=== PATIENT | male | born 1965 | race Caucasian/White ===

== ENCOUNTER 2019-03-28 11:06 | Inpatient (IN) | payer MEDICARE ==
[~2019-03-28] VITALS: Ht 170.2 cm; Wt 95.4 kg
[2019-03-28 11:54] LABS: HEMATOCRIT 21.7 % (42-54); LYMPHOCYTES % (AUTO) 31.2 % (21.0-51.0); MEAN CORPUSCULAR HEMOGLOBIN 25.2 pg (27.0-33.0); MEAN CORPUSCULAR HGB CONC 32.7 g/dL (32.0-36.0); MEAN CORPUSCULAR VOLUME 76.8 fL (79-99); MONOCYTES % (AUTO) 7.7 % (3.0-13.0); NEUTROPHILS % (AUTO) 60.1 % (40.0-77.0); NUCLEATED RED BLOOD CELLS 0.1 % (0.0-0.19); PLATELET COUNT (AUTO) 117 K/uL (130-400); RED BLOOD CELL COUNT(AUTO) 2.83 MIL/uL (4.50-6.20); RED CELL DISTRIBUTION WIDTH 16.8 % (11.0-15.5); WHITE BLOOD COUNT (AUTO) 2.8 K/uL (4.8-10.8)
[2019-03-28 12:09] LABS: BILIRUBIN,TOTAL 0.4 mg/dL (0.2-1.0); TOTAL PROTEIN, SERUM 8.2 g/dL (6.0-8.3)
[2019-03-28 12:11] LABS: PARTIAL THROMBOPLASTIN TIME 54.6 SEC (26.3-35.5)
[2019-03-28 12:24] LABS: CREATININE 8.2 mg/dL (0.5-1.5); POTASSIUM 6.7 mmol/L (3.5-5.1)
[2019-03-28 12:25] LABS: B-TYPE NATRIURETIC PEPTIDE 1350 pg/mL (0-100)
[2019-03-28] MEDS ORDERED: FUROSEMIDE 10 MG/ML 2ML VIAL ONE (12:35)
[2019-03-28] MEDS ORDERED: INSULIN HUMULIN R 100 UNIT/ML 3ML ONE ×2 (12:36→18:02)
[2019-03-28] MEDS ORDERED: DEXTROSE 50%-WATER 50 ML DISP.SYRIN IV ONE ×2 (12:36→18:02)
[2019-03-28] MEDS ORDERED: ALBUTEROL SULFATE 0.083% 2.5 MG/3 ML INH IH ONE ×2 (12:38→18:03)
[2019-03-28 12:39] LABS: APPEARANCE,URINE Cloudy (CLEAR); BILIRUBIN,URINE Negative (NEGATIVE); COLOR,URINE Orange (YELLOW); GLUCOSE, URINE (UA) Negative (NEGATIVE); KETONES,URINE Negative (NEGATIVE); LEUKOCYTE ESTERASE ,URINE Trace (NEGATIVE); NITRATE,URINE Negative (NEGATIVE); OCCULT BLOOD,URINE Large (NEGATIVE); PROTEIN,URINE POS 2+ mg/dL (NEGATIVE)
[2019-03-28 12:49] LABS: AMPHET/METH SCREEN,URINE NEGATIVE (NEGATIVE); BACTERIA,URINE Few /HPF (None Seen); BARBITURATE SCREEN, URINE NEGATIVE (NEGATIVE); BENZODIAZEPINES SCREEN,URINE POSITIVE (NEGATIVE); CANNABINOID SCREEN,URINE NEGATIVE (NEGATIVE); COCAINE SCREEN,URINE NEGATIVE (NEGATIVE); OPIATE SCREEN,URINE NEGATIVE (NEGATIVE); PHENCYCLIDINE SCREEN,URINE NEGATIVE (NEGATIVE); RBC,URINE TNTC /HPF (0-1); SQUAMOUS EPITHELIAL CELL,UR 0-2 /HPF (0-2); WBC,URINE 0-1 /HPF (0-1)
[2019-03-28 12:53] LABS: INR 3.9 (0.85-1.15); PROTHROMBIN TIME 38.9 SEC (9.6-11.6)
[2019-03-28 13:19] LABS: LYMPHOCYTES % (MANUAL) 28 % (22-44); MAN.DIFF COMMENT-IMPRESSION MANUAL DIFFERENTIAL; MONOCYTES % (MANUAL) 3 % (2-9); SEGMENTED NEUTROPHILS % 69 % (40-70)
[2019-03-28 13:20] LABS: PLATELET MORPHOLOGY COMMENT SLIGHTLY DECREASED
[2019-03-28] MEDS ORDERED: ACETAMINOPHEN 325 MG TAB PO PRN (13:30)
[2019-03-28] MEDS ORDERED: SODIUM POLYSTYRENE SULFONATE 15 GM/60 ML ML RC SCH (13:30)
[2019-03-28] MEDS ORDERED: FERROUS SULFATE 325 MG TABLET.DR PO SCH (13:30)
[2019-03-28 14:12] LABS: % IRON SATURATION 8.3 % (30-44)
[2019-03-28] MEDS ORDERED: WARF5TAB76 PO (14:36)
[2019-03-28] MEDS ORDERED: NITR0.3T11 SL (14:36)
[2019-03-28] MEDS ORDERED: DIAZ5TAB4 PO (14:36)
[2019-03-28] MEDS ORDERED: FERR159T2 PO (14:36)
[2019-03-28] MEDS ORDERED: GABA300S PO (14:36)
[2019-03-28] MEDS ORDERED: PATI8.4P PO (14:36)
[2019-03-28] MEDS ORDERED: BUSP10TA3 PO (14:36)
[2019-03-28] MEDS ORDERED: CARV25TA PO (14:36)
[2019-03-28] MEDS ORDERED: SODIUM POLYSTYRENE SULFONATE 15 GM/60 ML ML PO SCH (14:45)
[2019-03-28] MEDS ORDERED: SODIUM POLYSTYRENE SULFONATE 15 GM/60 ML ML ONE ×2 (14:46→19:20)
[2019-03-28] MEDS ORDERED: SODIUM CHLORIDE 0.9% 500ML 500 ML IV ONE (15:01)
[2019-03-28] MEDS ORDERED: HYDRALAZINE HCL 20 MG/ML VIAL IV PRN (16:15)
[2019-03-28] MEDS ORDERED: CALCIUM CHLORIDE 100 MG/ML 10 ML SYG IVP SCH (16:15)
[2019-03-28] MEDS ORDERED: ONDANSETRON HCL 4 MG/2 ML VIAL IVP PRN (16:15)
[2019-03-28] MEDS ORDERED: FUROSEMIDE 10 MG/ML 4ML VIAL ONE (18:01)
[2019-03-28] MEDS ORDERED: CALCIUM CHLORIDE 1,000 MG in SODIUM CHLORIDE 0.9% 100 ML IVP SCH (18:30)
[2019-03-28 23:00] VITALS: BP 176/97
[2019-03-28] MEDS: FAMOTIDINE 20MG TAB 20 MG TAB PO SCH (23:44)
[2019-03-28] MEDS: SODIUM BICARBONATE 650 MG TAB PO SCH (23:44)
--- NOTE | 2019-03-28 23:45 | NUR ---
ADMISSION NOTE PATIENT ARRIVED FROM ED VIA STRETCHER. PATIENT ALERT & ORIENTED X3, ON ROOM AIR. PATIENT DENIES PAIN AT THIS TIME. PER REPORT, POTASSIUM IS AT 6. PATIENT HAS BEEN ON KAYAXALATE. WILL AWAIT ORDERED LABS FOR POTASSIUM LEVEL. PATIENT UP AD ROMULO. ON TELEMETRY PATIENT IS SINUS RHYTHM AT 83. CALL LIGHT WITHIN REACH. INSTRUCTED TO CALL FOR ASSISTANCE. VERBALIZED UNDERSTANDING. FAMILY AT BEDSIDE.
[2019-03-29 00:42] LABS: CREATININE 8.6 mg/dL (0.5-1.5); POTASSIUM 6.3 mmol/L (3.5-5.1)
[2019-03-29 04:00] VITALS: BP 144/90
[2019-03-29 04:18] LABS: BASOPHILS % (AUTO) 1.1 % (0.0-5.0); EOSINOPHILS % (AUTO) 0.1 % (0.0-8.0); HEMATOCRIT 22.5 % (42-54); LYMPHOCYTES % (AUTO) 37.3 % (21.0-51.0); MEAN CORPUSCULAR HEMOGLOBIN 25.4 pg (27.0-33.0); MEAN CORPUSCULAR HGB CONC 32.7 g/dL (32.0-36.0); MEAN CORPUSCULAR VOLUME 77.8 fL (79-99); NEUTROPHILS % (AUTO) 51.5 % (40.0-77.0); PLATELET COUNT (AUTO) 121 K/uL (130-400); RED BLOOD CELL COUNT(AUTO) 2.89 MIL/uL (4.50-6.20); RED CELL DISTRIBUTION WIDTH 17.6 % (11.0-15.5); WHITE BLOOD COUNT (AUTO) 2.7 K/uL (4.8-10.8)
[2019-03-29 04:38] LABS: ALBUMIN 2.8 g/dL (3.5-5.0); BILIRUBIN,DIRECT 0.1 mg/dL (0.0-0.3); BILIRUBIN,TOTAL 0.4 mg/dL (0.2-1.0); MAGNESIUM 2.5 mg/dL (1.80-2.40); PHOSPHORUS 6.7 mg/dL (2.5-4.9); TOTAL PROTEIN, SERUM 7.7 g/dL (6.0-8.3); URIC ACID 10.2 mg/dL (2.6-7.2)
[2019-03-29 05:11] LABS: CREATININE 8.9 mg/dL (0.5-1.5); POTASSIUM 6.3 mmol/L (3.5-5.1)
--- NOTE | 2019-03-29 06:15 | NUR ---
PAGED FORENSIC COMPUTER EXAMINER AT 0546 DR. VINCENT EVANS WAS PAGED FOR HOSPITALIST GROUP. DR CALLED BACK AT 0615, INFORMED OF POTASSIUM AT 6.3 AND CREATININE LEVEL AT 8.9. INFORMED PATIENT PREVIOUSLY RECEIVED TWO ROUNDS OF HYPERKALEMIA COCKTAIL, PLUS 60G OF KAYEXALATE. INFORMED THAT BMP LEVELS ARE TO BE DRAWN EVERY [address] STATED TO AWAIT FOR 8AM RESULTS ON NEXT BMP. NO NEW ORDERS GIVEN.
[2019-03-29 07:37] VITALS: BP 156/91
[2019-03-29] MEDS ORDERED: GABA-531 PO (08:18)
--- NOTE | 2019-03-29 08:18 | NUR ---
FATEMEH BRYANT, IN ROOM WITH PT. FOR PULMONARY CONSULT.
[2019-03-29] MEDS: SODIUM BICARBONATE 650 MG TAB PO SCH ×2 (08:23→20:44)
[2019-03-29] MEDS: FOLIC ACID/VITAMIN B COMP W-C 1 MG CAP/TAB PO SCH (08:23)
--- NOTE | 2019-03-29 08:23 | NUR ---
DR. DUGAN IN ROOM SPEAKING WITH PT. RE:LATEST LABS AND ABD US RESULTS. PLAN OF CARE EXPLAINED BY DR. DUGAN AND QUESTIONS ANSWERED; PT. AND SPOUSE AT BEDSIDE VERBALIZED MUTUAL UNDERSTANDING.
[2019-03-29] MEDS: FERROUS SULFATE 325 MG TABLET.DR PO SCH (08:24)
[2019-03-29 08:37] LABS: CREATININE 9.3 mg/dL (0.5-1.5)
[2019-03-29] MEDS: PATIROMER CALCIUM SORBITEX 8.4 GM PO SCH (09:00)
[2019-03-29] MEDS: CARVEDILOL 25 MG TABLET PO SCH ×2 (10:00→20:44)
[2019-03-29 12:05] VITALS: BP 147/85
--- NOTE | 2019-03-29 14:38 | NUR ---
DR. LEE IN ROOM SPEAKING WITH PT. RE:PLAN OF CARE. QUESTIONS ANSWERED BY DR. LEE.
--- NOTE | 2019-03-29 14:43 | NUR ---
DC PLAN VISITED WITH PATIENT LIVES WITH SPOUSE. INDEPENDENT ABLE TO PERFORM ADL'S. PATIENT HAS NO SERVICES OR DME'S. FEELS SAFE TO RETURN HOME. Addendum: 03/29/19 at 1445 by ENRIKE MAURICIO RN CM Amended: Links added.
--- NOTE | 2019-03-29 15:05 | NUR ---
RD NOTIFICATION Dx: CKD, SEVERE ANEMIA. Hx: DAILY DRINKER. DIET: RENAL DIALYSIS. PO INTAKE 100% AND HAS GOOD APPETITE. LBM: 03/29. PT NEVER BEEN ON DIALYSIS IN THE PAST. SKIN INTACT, NO EDEMA NOTED. RD PROVIDED MEDICAL NUTRITION THERAPY. EDUCATION MATERIALS PROVIDED. PT ASKED MANY QUESTIONS, RD ANSWERED AND PT VERBALIZED UNDERSTANDING. RD ENCOURAGED PT TO LIMIT POTASSIUM, PHOSPHOROUS, PROTEIN AND FLUID INTAKE DUE TO SEVERE ELEVATED RENAL FAILURE LABS. PT STATED HE LAST WEIGHED 240# IN THE PAST 6 MONTHS, THAT IS A 15.4% WEIGHT LOSS CHANGE IN THE PAST 6 MONTHS; CLASSIFIED MALNUTRITION. RECOMMENDATIONS AND INTERVENTIONS: D/C RENAL DIALYSIS, CHANGE DIET ORDER TO RENAL NON-DIALYSIS, LOW FAT, 1200ML/D FLUID RESTRICTION RECOMMEND THIAMINE SUPPLEMENTATION DUE TO HX OF DAILY DRINKER RD PROVIDED RENAL NON-DIALYSIS MEDICAL NUTRITION THERAPY, MATERIALS PROVIDED WILL CONTINUE TO MONITOR LABS AND FOLLOW UP, THANK YOU Addendum: 03/29/19 at [address] Amended: Links added.
--- NOTE | 2019-03-29 15:14 | NUR ---
DIET EDUCATION RD PROVIDED MEDICAL NUTRITION THERAPY. EDUCATION MATERIALS PROVIDED. PT ASKED MANY QUESTIONS, RD ANSWERED AND PT VERBALIZED UNDERSTANDING. RD ENCOURAGED PT TO LIMIT POTASSIUM, PHOSPHOROUS, PROTEIN AND FLUID INTAKE DUE TO SEVERE ELEVATED RENAL FAILURE LABS. PT STATED HE LAST WEIGHED 240# IN THE PAST 6 MONTHS, THAT IS 15.4% WEIGHT CHANGE IN THE PAST 6 MONTHS; CLASSIFIED MALNUTRITION. Addendum: 03/29/19 at [address] Amended: Links added.
[2019-03-29 15:25] VITALS: BP 145/85
[2019-03-29 19:00] VITALS: BP 160/94
--- NOTE | 2019-03-29 20:00 | NUR ---
Patient stated confusion as to proper treatment for current problem Patient voiced that he was confused with what the doctors were talking about. He stated that each doctor was talking about different treatments for patient. Day Spa Manager encouraged patient to write concerns down and to ask Dr. Hebert in the a.m. to clarify weather or not dialysis is the proper treatment or not.
[2019-03-29] MEDS: FAMOTIDINE 20MG TAB 20 MG TAB PO SCH (20:44)
[2019-03-29 23:00] VITALS: BP 150/64
[2019-03-30 04:00] VITALS: BP 138/80
[2019-03-30 04:39] LABS: EOSINOPHILS % (AUTO) 0.1 % (0.0-8.0); HEMATOCRIT 22.5 % (42-54); LYMPHOCYTES % (AUTO) 45.4 % (21.0-51.0); MEAN CORPUSCULAR HEMOGLOBIN 25.4 pg (27.0-33.0); MEAN CORPUSCULAR HGB CONC 32.7 g/dL (32.0-36.0); MEAN CORPUSCULAR VOLUME 77.8 fL (79-99); MONOCYTES % (AUTO) 10.3 % (3.0-13.0); NEUTROPHILS % (AUTO) 43.2 % (40.0-77.0); NUCLEATED RED BLOOD CELLS 0.1 % (0.0-0.19); PLATELET COUNT (AUTO) 105 K/uL (130-400); RED CELL DISTRIBUTION WIDTH 17.5 % (11.0-15.5); WHITE BLOOD COUNT (AUTO) 2.7 K/uL (4.8-10.8)
[2019-03-30 04:59] LABS: MAGNESIUM 1.5 mg/dL (1.80-2.40); PHOSPHORUS 6.4 mg/dL (2.5-4.9); POTASSIUM 5.7 mmol/L (3.5-5.1)
[2019-03-30 05:13] LABS: CREATININE 9.6 mg/dL (0.5-1.5)
[2019-03-30 05:19] LABS: BAND NEUTROPHILS % (MANUAL) 4 % (0-2); LYMPHOCYTES % (MANUAL) 36 % (22-44); MONOCYTES % (MANUAL) 4 % (2-9); SEGMENTED NEUTROPHILS % 56 % (40-70)
[2019-03-30 05:20] LABS: MAN.DIFF COMMENT-IMPRESSION MANUAL DIFFERENTIAL; PLATELET MORPHOLOGY COMMENT SLIGHTLY DECREASED
[2019-03-30 07:42] VITALS: BP 154/92
[2019-03-30] MEDS: PATIROMER CALCIUM SORBITEX 8.4 GM PO SCH (09:00)
[2019-03-30 10:12] LABS: HEPATITIS A ANTIBODY IGM Negative (Negative); HEPATITIS B CORE IGM Negative (Negative); HEPATITIS Bs ANTIGEN SCREEN P Negative (Negative)
[2019-03-30] MEDS: FOLIC ACID/VITAMIN B COMP W-C 1 MG CAP/TAB PO SCH (10:22)
[2019-03-30] MEDS: FERROUS SULFATE 325 MG TABLET.DR PO SCH (10:22)
[2019-03-30] MEDS: CARVEDILOL 25 MG TABLET PO SCH ×2 (10:23→21:29)
[2019-03-30] MEDS: SODIUM BICARBONATE 650 MG TAB PO SCH ×2 (10:24→21:28)
[2019-03-30 11:29] VITALS: BP 134/85
[2019-03-30 15:25] VITALS: BP 146/87
--- NOTE | 2019-03-30 18:00 | NUR ---
BENCH MECHANIC Paged Dr. Vela. Pending for him to call back and consult patient for possible scleroderma diagnosis based on laboratory results.
[2019-03-30 19:42] VITALS: BP 147/88
--- NOTE | 2019-03-30 20:21 | NUR ---
ASSESSMENT PATIENT IS RESTING IN BED. ALERT AND ORIENTED X4. PATIENTS IS AT BEDSIDE. NO COMPLAINTS OF PAIN AT THIS TIME. NO SHORTNESS OF BREATH. NO SIGNS OF DISTRESS. PATIENTS CALL LIGHT, BEDSIDE TABLE, AND PERSONAL BELONGING WITHIN REACH. PATIENT REINFORCED TO CALL FOR ANY NEEDS. PATIENT HAD MULTIPLE QUESTIONS REGARDING CONDITION PENDING CONSULT WITH DR. BERGER. NO OTHER NEEDS AT THIS TIME.
[2019-03-30] MEDS: FAMOTIDINE 20MG TAB 20 MG TAB PO SCH (21:28)
[2019-03-30 23:24] VITALS: BP 152/88
[2019-03-31] VITALS (12 sets, daily range): BP systolic 140–160; BP diastolic 77–97
--- NOTE | 2019-03-31 | NUR ---
ASSESSMENT PATIENT IS RESTING IN BED. NO COMPLAINTS OF PAIN AT THIS TIME. NO SIGNS OF DISTRESS. NO SHORTNESS OF BREATH. CALL LIGHT WITHIN REACH. NO QUESTIONS, CONCERNS, OR NEEDS AT THIS TIME.
[2019-03-31 04:25] LABS: BASOPHILS % (AUTO) 1.2 % (0.0-5.0); EOSINOPHILS % (AUTO) 0.1 % (0.0-8.0); HEMATOCRIT 21.6 % (42-54); LYMPHOCYTES % (AUTO) 45.3 % (21.0-51.0); MEAN CORPUSCULAR HEMOGLOBIN 26.3 pg (27.0-33.0); MEAN CORPUSCULAR HGB CONC 33.5 g/dL (32.0-36.0); MEAN CORPUSCULAR VOLUME 78.4 fL (79-99); MONOCYTES % (AUTO) 11.1 % (3.0-13.0); NEUTROPHILS % (AUTO) 42.3 % (40.0-77.0); NUCLEATED RED BLOOD CELLS 0.2 % (0.0-0.19); PLATELET COUNT (AUTO) 103 K/uL (130-400); RED BLOOD CELL COUNT(AUTO) 2.76 MIL/uL (4.50-6.20); RED CELL DISTRIBUTION WIDTH 17.7 % (11.0-15.5); WHITE BLOOD COUNT (AUTO) 2.6 K/uL (4.8-10.8)
[2019-03-31 04:40] LABS: POTASSIUM 5.8 mmol/L (3.5-5.1)
[2019-03-31 04:54] LABS: CREATININE 10.6 mg/dL (0.5-1.5)
--- NOTE | 2019-03-31 06:05 | NUR ---
ASSESSMENT PATIENT IS RESTING IN BED. IS AT BEDSIDE. NO COMPLAINTS OF PAIN. NO SIGNS OF DISTRESS. NO SHORTNESS OF BREATH. NO QUESTIONS, CONCERNS, OR NEEDS AT THIS TIME. PATIENTS CALL LIGHT IS WITHIN REACH. REINFORCED TO CALL FOR ANY NEEDS.
[2019-03-31] MEDS: FERROUS SULFATE 325 MG TABLET.DR PO SCH (06:44)
[2019-03-31] MEDS: PATIROMER CALCIUM SORBITEX 8.4 GM PO SCH (09:00)
[2019-03-31 09:36] LABS: INR 1.93 (0.85-1.15); PARTIAL THROMBOPLASTIN TIME 44.9 SEC (26.3-35.5); PROTHROMBIN TIME 19.8 SEC (9.6-11.6)
[2019-03-31] MEDS: SODIUM BICARBONATE 650 MG TAB PO SCH ×2 (09:39→20:29)
[2019-03-31] MEDS: CARVEDILOL 25 MG TABLET PO SCH ×2 (09:39→20:29)
[2019-03-31] MEDS: FOLIC ACID/VITAMIN B COMP W-C 1 MG CAP/TAB PO SCH (09:39)
[2019-03-31] MEDS ORDERED: LIDOCAINE HCL 1% MDV 50ML VIAL ONE (11:25)
[2019-03-31] MEDS ORDERED: CEFAZOLIN SODIUM 1 GM VIAL ONE (11:29)
[2019-03-31 13:14] LABS: ALBUMIN 2.8 g/dL (3.5-5.0)
[2019-03-31 13:16] LABS: HEMOGLOBIN A1C 5.4 % (4.0-6.0)
[2019-03-31 14:03] LABS: % IRON SATURATION 27.3 % (30-44)
[2019-03-31] MEDS ORDERED: 0.9% SODIUM CHLORIDE 1000 ML IV BAG IV PRN (16:30)
[2019-03-31] MEDS ORDERED: NITROGLYCERIN 0.4 MG SL TAB SL PRN (16:30)
[2019-03-31] MEDS ORDERED: SODIUM CHLORIDE 0.9% 1000ML 1,000 ML IV PRN (16:30)
[2019-03-31] MEDS: HEPARIN SODIUM 5000UNIT/ML 1ML VIAL IJ PRN (16:44)
--- NOTE | 2019-03-31 18:51 | NUR ---
DIALYSIS FINISHED AND NO FLUID REMOVED ONLY A 2 HOUR TREATMENT AND DIALYSIS NURSE WERE INSTRUCTED BY DR PARKS TO JUST CLEANSE HIS BLOOD. ANOTHER TREATMENT ORDERED FOR TOMORROW AND WILL FOLLOW UP AGAIN WITH PATIENT. Addendum: 03/31/19 at 1852 by JANIE CAST RN RN Amended: Links added.
--- NOTE | 2019-03-31 19:55 | NUR ---
ASSESSMENT PATIENT IS RESTING IN BED. ALERT AND ORIENTED X4. NO COMPLAINTS OF PAIN. NO SHORTNESS OF BREATH. NO SIGNS OF DISTRESS. S/P DIALYSIS CATHETER PLACEMENT TODAY, PRESSURE DRESSING IN PLACE THAT IS CLEAN, DRY, AND INTACT. CALL LIGHT AND BEDSIDE TABLE WITHIN REACH. IS AT BEDSIDE. REINFORCED PATIENT TO CALL FOR ANY NEEDS. NO QUESTIONS, CONCERNS, OR NEEDS AT THIS TIME.
[2019-03-31] MEDS: FAMOTIDINE 20MG TAB 20 MG TAB PO SCH (20:29)
[2019-04-01] VITALS: BP 144/90
[2019-04-01 04:01] VITALS: BP 149/78
[2019-04-01] MEDS: FERROUS SULFATE 325 MG TABLET.DR PO SCH (06:50)
[2019-04-01 07:14] LABS: HEPATITIS Bs ANTIGEN SCREEN P Negative (Negative)
[2019-04-01 07:21] VITALS: BP 152/90
[2019-04-01] MEDS ORDERED: VENTOLIN HFA IH PRN (09:00)
[2019-04-01] MEDS: PATIROMER CALCIUM SORBITEX 8.4 GM PO SCH (09:00)
[2019-04-01] MEDS: FOLIC ACID/VITAMIN B COMP W-C 1 MG CAP/TAB PO SCH (09:15)
[2019-04-01] MEDS: SODIUM BICARBONATE 650 MG TAB PO SCH ×2 (09:15→20:47)
[2019-04-01] MEDS: CARVEDILOL 25 MG TABLET PO SCH ×2 (09:15→20:50)
[2019-04-01] MEDS ORDERED: ALBUTEROL SULFATE 0.083% 2.5 MG/3 ML INH IH ONE (09:33)
[2019-04-01 11:27] VITALS: BP 159/91
[2019-04-01 15:22] VITALS: BP 172/92
[2019-04-01] MEDS: HEPARIN SODIUM 5000UNIT/ML 1ML VIAL IJ PRN (15:29)
[2019-04-01] MEDS ORDERED: GUAIFENESIN-DM 200/20 MG 10 ML PO PRN (17:30)
[2019-04-01] MEDS ORDERED: WARFARIN SODIUM 5 MG TAB PO SCH (18:00)
[2019-04-01] MEDS: ALBUTEROL SULFATE 0.083% 2.5 MG/3 ML INH IH PRN (18:39)
[2019-04-01] MEDS: FAMOTIDINE 20MG TAB 20 MG TAB PO SCH (20:48)
[2019-04-02 00:10] VITALS: BP 157/99
[2019-04-02 03:43] VITALS: BP 115/64
[2019-04-02 04:20] LABS: INR 1.33 (0.85-1.15); PARTIAL THROMBOPLASTIN TIME 36.2 SEC (26.3-35.5); PROTHROMBIN TIME 13.8 SEC (9.6-11.6)
[2019-04-02] MEDS: FERROUS SULFATE 325 MG TABLET.DR PO SCH (06:33)
[2019-04-02] MEDS: ALBUTEROL SULFATE 0.083% 2.5 MG/3 ML INH IH PRN ×2 (06:50→19:03)
[2019-04-02 08:01] VITALS: BP 149/95
[2019-04-02] MEDS: PATIROMER CALCIUM SORBITEX 8.4 GM PO SCH (09:00)
[2019-04-02] MEDS: SODIUM BICARBONATE 650 MG TAB PO SCH ×2 (09:16→19:57)
[2019-04-02] MEDS: FOLIC ACID/VITAMIN B COMP W-C 1 MG CAP/TAB PO SCH (09:16)
[2019-04-02] MEDS: CARVEDILOL 25 MG TABLET PO SCH ×2 (09:17→19:57)
[2019-04-02 10:36] LABS: BASOPHILS % (AUTO) 0.3 % (0.0-5.0); EOSINOPHILS % (AUTO) 0.1 % (0.0-8.0); LYMPHOCYTES % (AUTO) 41.2 % (21.0-51.0); MEAN CORPUSCULAR HEMOGLOBIN 25.7 pg (27.0-33.0); MEAN CORPUSCULAR HGB CONC 33.4 g/dL (32.0-36.0); MEAN CORPUSCULAR VOLUME 76.8 fL (79-99); MONOCYTES % (AUTO) 12.1 % (3.0-13.0); NEUTROPHILS % (AUTO) 46.3 % (40.0-77.0); NUCLEATED RED BLOOD CELLS 0.3 % (0.0-0.19); PLATELET COUNT (AUTO) 90 K/uL (130-400); RED BLOOD CELL COUNT(AUTO) 2.54 MIL/uL (4.50-6.20); RED CELL DISTRIBUTION WIDTH 17.7 % (11.0-15.5)
[2019-04-02 10:43] LABS: HEMATOCRIT 19.5 % (42-54)
[2019-04-02 11:50] VITALS: BP 153/92
[2019-04-02] MEDS: HEPARIN 25000 UNITS/250 ML D5W 250 ML IV PRN (14:12)
[2019-04-02 15:39] VITALS: BP 142/93
[2019-04-02] MEDS ORDERED: WARFARIN SODIUM 5 MG TAB PO SCH (16:00)
[2019-04-02] MEDS: DIPHENHYDRAMINE HCL 25 MG CAPSULE PO PRN (17:10)
[2019-04-02] MEDS: FAMOTIDINE 20MG TAB 20 MG TAB PO SCH (19:57)
[2019-04-02 20:01] VITALS: BP 149/90
[2019-04-02 21:25] LABS: INR 1.29 (0.85-1.15); PARTIAL THROMBOPLASTIN TIME 53.4 SEC (26.3-35.5); PROTHROMBIN TIME 13.4 SEC (9.6-11.6)
[2019-04-03 00:51] VITALS: BP 143/85
[2019-04-03] MEDS: DIPHENHYDRAMINE HCL 25 MG CAPSULE PO PRN ×2 (01:30→13:28)
--- NOTE | 2019-04-03 03:43 | NUR ---
PATIENT RESTING IN BED. C/O COUGH WHEN LYING BACK OR TALKING. PATIENT DOES BECOME SOB WHEN SPEAKING. RED STREAKED SPUTUM WITH COUGH. PATIENT DEVELOPED REDNESS AND RASH TO BACK OF NECK AND SHOULDERS DURING BLOOD TRANSFUSION BENADRYL WAS GIVEN BY DAY SHIFT. PATIENT STATES SYMPTOMS IMPROVED. HEPARIN DRIP CURRENTLY RUNNING. WILL MAKE ADJUSTMENTS ACCORDING TO PROTOCOL. WILL MONITOR FOR S/S OF BLEEDING.
[2019-04-03 04:23] VITALS: BP 139/94
[2019-04-03] MEDS: HEPARIN 25000 UNITS/250 ML D5W 250 ML IV PRN (05:43)
[2019-04-03] MEDS: ALBUTEROL SULFATE 0.083% 2.5 MG/3 ML INH IH PRN ×2 (06:20→18:03)
[2019-04-03 07:10] VITALS: BP 151/91
[2019-04-03] MEDS: SODIUM BICARBONATE 650 MG TAB PO SCH ×2 (08:25→22:08)
[2019-04-03] MEDS: FOLIC ACID/VITAMIN B COMP W-C 1 MG CAP/TAB PO SCH (08:25)
[2019-04-03] MEDS: FERROUS SULFATE 325 MG TABLET.DR PO SCH (08:25)
[2019-04-03] MEDS: CARVEDILOL 25 MG TABLET PO SCH ×2 (08:29→22:08)
--- NOTE | 2019-04-03 08:30 | NUR ---
PT STATES THAT HE LONGER TAKES VELTASSA BECAUSE HE ONLY HAD SAMPLES AND HE IS OUT. DOCTOR HAD TOLD PT THAT SINCE HE WAS ON DIALYSIS HE DID NOT NEED TO TAKE VELTASSA.
[2019-04-03] MEDS: PATIROMER CALCIUM SORBITEX 8.4 GM PO SCH (08:31)
[2019-04-03] MEDS ORDERED: NITROGLYCERIN 0.4 MG SL TAB SL PRN (10:45)
[2019-04-03] MEDS ORDERED: 0.9% SODIUM CHLORIDE 1000 ML IV BAG IV PRN (10:45)
[2019-04-03] MEDS ORDERED: HEPARIN SODIUM 5000UNIT/ML 1ML VIAL IJ PRN ×2 (10:45)
[2019-04-03] MEDS ORDERED: LIDOCAINE HCL-MPF 1% 2ML VIAL IJ PRN (10:45)
[2019-04-03] MEDS ORDERED: SODIUM CHLORIDE 0.9% 1000ML 1,000 ML IV PRN (10:45)
[2019-04-03] MEDS ORDERED: ACETAMINOPHEN 325 MG TAB PO PRN (10:45)
[2019-04-03 11:47] VITALS: BP 153/93
--- NOTE | 2019-04-03 13:00 | NUR ---
PT HAS TOLERATED DIALYSIS AND WILL ADVISE PT THAT DIALYSIS WAS STARTED FOR TOMORROW.
[2019-04-03] MEDS ORDERED: METHYLPREDNISOLONE SOD SUCC 125MG/2ML VIAL IVP SCH (14:30)
--- NOTE | 2019-04-03 15:27 | NUR ---
RD NOTIFICATION/ FOLLOW UP Diet: renal non-dialysis, low fat, 1200ml FR. PO intake 100% and has good appetite as per pt. LBM: 04/03. Skin intact, no edema noted. Will continue to monitor labs (Na 133, K 5.8, BUN 75, CRE 10.6, GFR 5, PHOS 6.4, %SATURATION 27, HGB 6.5, HCT 19.5) Nutrition education materials provided to pt and family Please notify RD if any changes, questions or concerns occur, thank you Addendum: 04/03/19 at [address] Amended: Links added.
[2019-04-03 15:49] VITALS: BP 164/86
[2019-04-03 19:38] VITALS: BP 164/99
[2019-04-03] MEDS: METHYLPREDNISOLONE SOD SUCC 125MG/2ML VIAL IVP SCH (22:08)
[2019-04-03] MEDS: FAMOTIDINE 20MG TAB 20 MG TAB PO SCH (22:08)
[2019-04-04] VITALS (7 sets, daily range): BP systolic 135–167; BP diastolic 77–97
[2019-04-04 04:09] LABS: CREATININE 6.1 mg/dL (0.5-1.5); POTASSIUM 5.8 mmol/L (3.5-5.1)
[2019-04-04 04:22] LABS: BASOPHILS % (AUTO) 0.8 % (0.0-5.0); HEMATOCRIT 24.5 % (42-54); LYMPHOCYTES % (AUTO) 32.5 % (21.0-51.0); MEAN CORPUSCULAR HEMOGLOBIN 26.6 pg (27.0-33.0); MEAN CORPUSCULAR HGB CONC 34.2 g/dL (32.0-36.0); MEAN CORPUSCULAR VOLUME 77.6 fL (79-99); MONOCYTES % (AUTO) 3.6 % (3.0-13.0); NEUTROPHILS % (AUTO) 63.1 % (40.0-77.0); NUCLEATED RED BLOOD CELLS 0.1 % (0.0-0.19); PLATELET COUNT (AUTO) 91 K/uL (130-400); RED BLOOD CELL COUNT(AUTO) 3.16 MIL/uL (4.50-6.20); RED CELL DISTRIBUTION WIDTH 17.6 % (11.0-15.5); WHITE BLOOD COUNT (AUTO) 3.2 K/uL (4.8-10.8)
[2019-04-04] MEDS: ALBUTEROL SULFATE 0.083% 2.5 MG/3 ML INH IH PRN ×2 (06:09→17:59)
[2019-04-04] MEDS: METHYLPREDNISOLONE SOD SUCC 125MG/2ML VIAL IVP SCH ×3 (06:31→21:47)
[2019-04-04] MEDS: FERROUS SULFATE 325 MG TABLET.DR PO SCH (06:31)
[2019-04-04] MEDS: HEPARIN 25000 UNITS/250 ML D5W 250 ML IV PRN ×2 (06:43→20:22)
[2019-04-04] MEDS: PATIROMER CALCIUM SORBITEX 8.4 GM PO SCH (09:00)
[2019-04-04] MEDS: CARVEDILOL 25 MG TABLET PO SCH ×2 (09:02→21:47)
[2019-04-04] MEDS: SODIUM BICARBONATE 650 MG TAB PO SCH ×2 (09:02→21:47)
[2019-04-04] MEDS: FOLIC ACID/VITAMIN B COMP W-C 1 MG CAP/TAB PO SCH (09:02)
[2019-04-04 11:26] LABS: INR 1.29 (0.85-1.15); PARTIAL THROMBOPLASTIN TIME 60.8 SEC (26.3-35.5); PROTHROMBIN TIME 13.2 SEC (9.6-11.6)
--- NOTE | 2019-04-04 11:49 | NUR ---
DR. BERGER HAS CALLED BACK AFTER MULTIPLE ATTEMPTS TO CALL HIS PHONE AND OFFICE. WAS INFORMED ABOUT CONSULTATION.
[2019-04-04] MEDS: FAMOTIDINE 20MG TAB 20 MG TAB PO SCH (21:47)
[2019-04-04] MEDS: HEPARIN SODIUM 5000UNIT/ML 1ML VIAL IJ PRN (21:48)
[2019-04-05 03:53] VITALS: BP 143/81
[2019-04-05 03:56] LABS: CREATININE 4.4 mg/dL (0.5-1.5); POTASSIUM 4.5 mmol/L (3.5-5.1)
[2019-04-05 04:01] LABS: BASOPHILS % (AUTO) 0.2 % (0.0-5.0); HEMATOCRIT 23.2 % (42-54); LYMPHOCYTES % (AUTO) 15.3 % (21.0-51.0); MEAN CORPUSCULAR HEMOGLOBIN 26.9 pg (27.0-33.0); MEAN CORPUSCULAR HGB CONC 34.6 g/dL (32.0-36.0); MEAN CORPUSCULAR VOLUME 77.8 fL (79-99); MONOCYTES % (AUTO) 5.2 % (3.0-13.0); NEUTROPHILS % (AUTO) 79.3 % (40.0-77.0); PLATELET COUNT (AUTO) 89 K/uL (130-400); RED BLOOD CELL COUNT(AUTO) 2.98 MIL/uL (4.50-6.20); RED CELL DISTRIBUTION WIDTH 17.8 % (11.0-15.5); WHITE BLOOD COUNT (AUTO) 3.8 K/uL (4.8-10.8)
[2019-04-05] MEDS: METHYLPREDNISOLONE SOD SUCC 125MG/2ML VIAL IVP SCH ×3 (05:38→21:35)
[2019-04-05] MEDS: FERROUS SULFATE 325 MG TABLET.DR PO SCH (05:38)
[2019-04-05] MEDS: ALBUTEROL SULFATE 0.083% 2.5 MG/3 ML INH IH PRN ×2 (06:45→18:03)
[2019-04-05 06:54] VITALS: BP 158/90
[2019-04-05] MEDS: PATIROMER CALCIUM SORBITEX 8.4 GM PO SCH (09:00)
[2019-04-05] MEDS: FOLIC ACID/VITAMIN B COMP W-C 1 MG CAP/TAB PO SCH (09:13)
[2019-04-05] MEDS: SODIUM BICARBONATE 650 MG TAB PO SCH ×2 (09:13→21:35)
[2019-04-05] MEDS: CARVEDILOL 25 MG TABLET PO SCH ×2 (09:13→21:37)
[2019-04-05 11:07] VITALS: BP 141/89
[2019-04-05 15:15] VITALS: BP 148/82
--- NOTE | 2019-04-05 16:24 | NUR ---
DOC PLAN VISITED WITH PATIENT. PATIENT SIGNED SUMA FOR DIALYSIS. SPOKE TO HIM REGARDING VEHICLE TRANSPORT PATIENT HAS MEDICAID ASKED IF THEY HAD TRIED TO USE THE MEDICAID TRANSPORT SAID THEY HAD HEARD OF IT BUT HAD NOT USED IT. INFO SENT TO [facility]. Addendum: 04/05/19 at 1627 by ENRIKE MAUIRCIO RN CM Amended: Links added.
--- NOTE | 2019-04-05 21:20 | NUR ---
ASSESSMENT PT AAOX4, PLEASANT COOPERATIVE, AND TALKATIVE. RHYTHM: NSR. WHITE BOARD UP-DATED, BEDSIDE MONITOR PARAMETERS REVIEWED AND ADJUSTED. CALLBELL REVIEWED WITH PT AND WITHIN REACH. ASSESSMENT COMPLETED, PLEASE SEE FLOW SHEET.
[2019-04-05] MEDS: FAMOTIDINE 20MG TAB 20 MG TAB PO SCH (21:35)
[2019-04-06] VITALS: BP 151/84
[2019-04-06 04:00] VITALS: BP 147/84
[2019-04-06] MEDS: METHYLPREDNISOLONE SOD SUCC 125MG/2ML VIAL IVP SCH ×2 (04:16→12:38)
[2019-04-06 05:23] LABS: HEMATOCRIT 23.1 % (42-54); MEAN CORPUSCULAR HEMOGLOBIN 26.3 pg (27.0-33.0); MEAN CORPUSCULAR HGB CONC 33.4 g/dL (32.0-36.0); MEAN CORPUSCULAR VOLUME 78.5 fL (79-99); PLATELET COUNT (AUTO) 105 K/uL (130-400); RED BLOOD CELL COUNT(AUTO) 2.94 MIL/uL (4.50-6.20); RED CELL DISTRIBUTION WIDTH 18.1 % (11.0-15.5); WHITE BLOOD COUNT (AUTO) 3.7 K/uL (4.8-10.8)
[2019-04-06 05:33] LABS: CREATININE 6.5 mg/dL (0.5-1.5); POTASSIUM 4.8 mmol/L (3.5-5.1)
[2019-04-06 05:49] LABS: BAND NEUTROPHILS % (MANUAL) 1 % (0-2); LYMPHOCYTES % (MANUAL) 14 % (22-44); MAN.DIFF COMMENT-IMPRESSION MANUAL DIFFERENTIAL; MONOCYTES % (MANUAL) 2 % (2-9); PLATELET MORPHOLOGY COMMENT SLIGHTLY DECREASED; SEGMENTED NEUTROPHILS % 83 % (40-70)
[2019-04-06] MEDS: ALBUTEROL SULFATE 0.083% 2.5 MG/3 ML INH IH PRN ×2 (06:08→18:35)
[2019-04-06] MEDS: FERROUS SULFATE 325 MG TABLET.DR PO SCH (06:18)
--- NOTE | 2019-04-06 07:20 | NUR ---
ENCOUNTERED PATIENT SITTING ON BED C/O PAIN TO LUMBO-SACRAL AREA SECONDARY TO HIS HERNIATED DISCS. PATIENT REFUSED TO TAKE ANY PAIN MEDICATION. FULL ASSESSMENT DONE. HEPARIN INFUSING VIA IV AT 1700UNITS/HR. CALL LIGHT WITHIN REACH. INSTRUCTED TO CALL FOR ASSISTANCE.
[2019-04-06 07:23] VITALS: BP 117/72
[2019-04-06] MEDS: CARVEDILOL 25 MG TABLET PO SCH ×2 (09:00→20:20)
[2019-04-06] MEDS: PATIROMER CALCIUM SORBITEX 8.4 GM PO SCH (09:00)
[2019-04-06 11:07] VITALS: BP 133/81
[2019-04-06] MEDS: FOLIC ACID/VITAMIN B COMP W-C 1 MG CAP/TAB PO SCH (11:11)
[2019-04-06] MEDS: SODIUM BICARBONATE 650 MG TAB PO SCH ×2 (11:11→20:19)
--- NOTE | 2019-04-06 12:05 | NUR ---
PTT:45.3 PER PROTOCOL, 3000UNITS OF HERAPIN BOLUS GIVEN AND ADJUSTED RATE TO 1900UNITS/HR PER PROTOCOL. NEXT PTT CHECK AT 1800.
[2019-04-06] MEDS: HEPARIN 25000 UNITS/250 ML D5W 250 ML IV PRN (12:39)
[2019-04-06] MEDS ORDERED: HEPARIN SODIUM 5000UNIT/ML 1ML VIAL IV SCH (12:45)
[2019-04-06] MEDS ORDERED: EPOETIN ALFA 10,000 UNIT/ML VIAL SQ SCH (15:30)
[2019-04-06 16:10] VITALS: BP 141/83
--- NOTE | 2019-04-06 16:21 | NUR ---
DC PLAN CALLED SPOKE TO [facility] REGARDING PACKET THAT WAS SENT SAID THEY RECEIVED BUT WERE TRYING TO SEE IF THEY COULD MAKE ROOM FOR PATIENT. PENDING ADMIN TO CALL HER BACK ONCE THEY LET HER KNOW SHE WILL LET ME KNOW. Addendum: 04/06/19 at 1623 by ENRIKE MAURICIO RN CM Amended: Links added.
[2019-04-06 19:00] VITALS: BP 128/77
[2019-04-06] MEDS: PREDNISONE 20 MG TABLET PO SCH (20:20)
[2019-04-06] MEDS: FAMOTIDINE 20MG TAB 20 MG TAB PO SCH (20:20)
[2019-04-07] VITALS (23 sets, daily range): BP systolic 127–152; BP diastolic 72–88
[2019-04-07] MEDS: HEPARIN 25000 UNITS/250 ML D5W 250 ML IV PRN (00:42)
[2019-04-07 04:02] LABS: MEAN CORPUSCULAR HEMOGLOBIN 26.6 pg (27.0-33.0); MEAN CORPUSCULAR HGB CONC 33.7 g/dL (32.0-36.0); PLATELET COUNT (AUTO) 86 K/uL (130-400); RED BLOOD CELL COUNT(AUTO) 3.04 MIL/uL (4.50-6.20); RED CELL DISTRIBUTION WIDTH 17.4 % (11.0-15.5); WHITE BLOOD COUNT (AUTO) 2.9 K/uL (4.8-10.8)
[2019-04-07 04:11] LABS: CREATININE 5.2 mg/dL (0.5-1.5); INR 1.15 (0.85-1.15); PARTIAL THROMBOPLASTIN TIME 41.2 SEC (26.3-35.5); POTASSIUM 4.5 mmol/L (3.5-5.1)
[2019-04-07 04:57] LABS: BAND NEUTROPHILS % (MANUAL) 4 % (0-2); LYMPHOCYTES % (MANUAL) 16 % (22-44); MONOCYTES % (MANUAL) 8 % (2-9); REACTIVE LYMPHOCYTES 1 % (0-0); SEGMENTED NEUTROPHILS % 71 % (40-70)
[2019-04-07 04:58] LABS: MAN.DIFF COMMENT-IMPRESSION MANUAL DIFFERENTIAL; PLATELET MORPHOLOGY COMMENT DECREASED
[2019-04-07] MEDS: ALBUTEROL SULFATE 0.083% 2.5 MG/3 ML INH IH PRN (06:33)
[2019-04-07] MEDS: FERROUS SULFATE 325 MG TABLET.DR PO SCH (07:16)
--- NOTE | 2019-04-07 07:30 | NUR ---
AM ASSESSMENT PT LAYING IN BED, HOB ELEVATED 30 DEGREES, RESTING. A/O X 3. NO SOB. NO DISTRESS NOTED. DENIES CHEST PAIN OR DISCOMFORT. DENIES PALPITATIONS. TELE: SR. DENIES N/V AND/OR DIARRHEA. NEW HD THIS ADMISSION; [facility]S. [facility] PERMACATH. NPO STATUS REINFORCED. PT TO HAVE LT AV FISTULA CREATION TODAY. HEPARIN GTT INFUSING @ 1900 UNITS/HR. UP AD ROMULO. INSTRUCTED TO CALL FOR ASSISTANCE. CALL ELIZABETH W/IN REACH.
[2019-04-07] MEDS: CARVEDILOL 25 MG TABLET PO SCH ×2 (08:46→20:28)
[2019-04-07] MEDS: SODIUM BICARBONATE 650 MG TAB PO SCH ×2 (09:00→20:26)
[2019-04-07] MEDS: PATIROMER CALCIUM SORBITEX 8.4 GM PO SCH (09:00)
[2019-04-07] MEDS: FOLIC ACID/VITAMIN B COMP W-C 1 MG CAP/TAB PO SCH (09:00)
--- NOTE | 2019-04-07 10:00 | NUR ---
STATUS HEPARIN GTT DISCONTINUED @ THIS TIME.
--- NOTE | 2019-04-07 11:21 | NUR ---
RD NOTIFICATION/ FOLLOW UP DIET: NPO; PENDING PROCEDURE. PT PREVIOUSLY ON RENAL NON-DIALYSIS, FR, AND LOW FAT DIET. PT TOLERATING DIET WELL. PO INTAKE 100% AND HAS GOOD APPETITE. PT STATED HE STILL FEELS HUNGRY BETWEEN MEALS. PT NOW ON DIALYSIS, HE HAS HAD 5 TREATMENTS AT [facility] [place] SO FAR PER PT. PT STATED HE IS FEELING OKAY. NO COMPLAINTS OF N/V/C/D. ADVANCE DIET TOLERATED TO RENAL DIALYSIS DIET AND FLUID RESTRICTION OFFER RENAL SNACKS BETWEEN MEALS OR NEPRO- ORAL SUPPLEMENT BID RENAL DIET AND NUTRITION EDUCATION PREVIOUSLY PROVIDED, MATERIALS PROVIDED RD WILL CONTINUE TO MONITOR AND F/U NEEDED, THANK YOU Addendum: 04/07/19 at [address] Amended: Links added.
--- NOTE | 2019-04-07 12:00 | NUR ---
STATUS PT TAKEN TO PRE-OP HOLDING VIA BED. FAMILY @ BEDSIDE. TELE ALFREDO REMOVED. FAMILY @ BEDSIDE.
--- NOTE | 2019-04-07 12:25 | NUR ---
SURGICAL PREP clipper prep and wiped with norma cloth Addendum: 04/07/19 at 1226 by VIANCA BILLY RN RN Amended: Links added.
[2019-04-07] MEDS ORDERED: LIDOCAINE HCL 2% 20ML ONE (13:16)
[2019-04-07] MEDS ORDERED: ROPIVACAINE 0.5% 5MG/ML 30ML IJ ONE (13:17)
[2019-04-07] MEDS ORDERED: MIDAZOLAM HCL 1 MG/ML 2ML VIAL ONE (13:20)
[2019-04-07] MEDS ORDERED: PROPOFOL 1000 MG/100 ML 100 ML IV ONE (13:48)
[2019-04-07] MEDS ORDERED: CEFAZOLIN SODIUM 1 GM VIAL ONE (13:48)
--- NOTE | 2019-04-07 14:23 | NUR ---
DOC PLAN SPOKE TO [facility] THEY RECEIVED PACKET AND ARE WORKING ON IT. Addendum: 04/07/19 at 1424 by ENRIKE MAURICIO RN CM Amended: Links added.
[2019-04-07] MEDS ORDERED: PAPAVERINE HCL 30 MG/ML 2ML VIAL ONE (14:27)
--- NOTE | 2019-04-07 16:20 | NUR ---
STATUS PT RECEIVED FROM PACU VIA BED; S/P LT LOWER RM AV FISTULA CREATION. DSG DRY & INTACT. (+) BRUIT/(+) THRILL. NO BLEEDING, NO HEMATOMA NOTED. NO EDEMA TO LUE. (+) CAPILLARY REFILL LUE. SLING TO LT ARM. LT ARM PRECAUTIONS REVIEWED. PT DENIES INCISIONAL PAIN. FAMILY @ BEDSIDE. INSTRUCTED TO CALL FOR ASSISTANCE. CALL ELIZABETH W/IN REACH.
--- NOTE | 2019-04-07 16:29 | NUR ---
MD NOTIFICATION DR LEE NOTIFIED PT BACK FROM SURGERY, PER SURGEON PT TO RESUME COUMADIN @ PRIMARY MD'S DISCRETION. ORDER RECEIVED TO RESUME HEPARIN GTT IN AM, 04/08/19, AND COUMADIN TOMORROW EVENING.
[2019-04-07] MEDS ORDERED: TRAMADOL HCL 50 MG TABLET PO PRN ×2 (16:30)
[2019-04-07 18:21] LABS: INR 1.11 (0.85-1.15); PARTIAL THROMBOPLASTIN TIME 30.8 SEC (26.3-35.5); PROTHROMBIN TIME 11.6 SEC (9.6-11.6)
[2019-04-07] MEDS: PREDNISONE 20 MG TABLET PO SCH (20:30)
[2019-04-07] MEDS: FAMOTIDINE 20MG TAB 20 MG TAB PO SCH (20:31)
[2019-04-07 23:07] LABS: RUBEOLA (MEASLES) IGG >300.0 AU/mL (Immune >16.4)
[2019-04-08 03:00] VITALS: BP 139/81
[2019-04-08 03:35] LABS: HEMATOCRIT 22.6 % (42-54); MEAN CORPUSCULAR HEMOGLOBIN 26.2 pg (27.0-33.0); MEAN CORPUSCULAR HGB CONC 33.5 g/dL (32.0-36.0); MEAN CORPUSCULAR VOLUME 78.1 fL (79-99); PLATELET COUNT (AUTO) 83 K/uL (130-400); RED BLOOD CELL COUNT(AUTO) 2.89 MIL/uL (4.50-6.20); RED CELL DISTRIBUTION WIDTH 17.3 % (11.0-15.5); WHITE BLOOD COUNT (AUTO) 2.9 K/uL (4.8-10.8)
[2019-04-08 03:47] LABS: CREATININE 7.2 mg/dL (0.5-1.5); POTASSIUM 4.8 mmol/L (3.5-5.1)
[2019-04-08] MEDS: FERROUS SULFATE 325 MG TABLET.DR PO SCH (06:46)
[2019-04-08] MEDS: ALBUTEROL SULFATE 0.083% 2.5 MG/3 ML INH IH PRN ×2 (06:54→18:55)
[2019-04-08 07:30] VITALS: BP 132/79
[2019-04-08 11:40] VITALS: BP 125/77
[2019-04-08] MEDS: FOLIC ACID/VITAMIN B COMP W-C 1 MG CAP/TAB PO SCH (14:25)
[2019-04-08] MEDS: SODIUM BICARBONATE 650 MG TAB PO SCH ×2 (14:26→20:18)
[2019-04-08] MEDS: PATIROMER CALCIUM SORBITEX 8.4 GM PO SCH (14:26)
[2019-04-08] MEDS: CARVEDILOL 25 MG TABLET PO SCH ×2 (14:26→20:17)
[2019-04-08 15:00] VITALS: BP 130/79
[2019-04-08] MEDS: HEPARIN 25000 UNITS/250 ML D5W 250 ML IV PRN (18:57)
[2019-04-08 19:00] VITALS: BP 149/80
[2019-04-08] MEDS: PREDNISONE 20 MG TABLET PO SCH (20:17)
[2019-04-08] MEDS: FAMOTIDINE 20MG TAB 20 MG TAB PO SCH (20:17)
[2019-04-08] MEDS: WARFARIN SODIUM 5 MG TAB PO SCH (20:19)
[2019-04-08 23:00] VITALS: BP 135/68
[2019-04-09 03:00] VITALS: BP 137/81
[2019-04-09] MEDS: ALBUTEROL SULFATE 0.083% 2.5 MG/3 ML INH IH PRN ×2 (04:20→18:36)
[2019-04-09] MEDS: FERROUS SULFATE 325 MG TABLET.DR PO SCH (06:15)
[2019-04-09 07:35] VITALS: BP 146/85
[2019-04-09] MEDS: FOLIC ACID/VITAMIN B COMP W-C 1 MG CAP/TAB PO SCH (07:47)
[2019-04-09] MEDS: SODIUM BICARBONATE 650 MG TAB PO SCH ×2 (07:47→21:04)
[2019-04-09] MEDS: CARVEDILOL 25 MG TABLET PO SCH ×2 (07:47→21:04)
[2019-04-09 08:42] LABS: HEMATOCRIT 24.8 % (42-54); MEAN CORPUSCULAR HEMOGLOBIN 26.2 pg (27.0-33.0); MEAN CORPUSCULAR VOLUME 79.5 fL (79-99); PLATELET COUNT (AUTO) 92 K/uL (130-400); RED BLOOD CELL COUNT(AUTO) 3.12 MIL/uL (4.50-6.20); RED CELL DISTRIBUTION WIDTH 17.2 % (11.0-15.5)
[2019-04-09 08:49] LABS: CREATININE 6.4 mg/dL (0.5-1.5)
[2019-04-09 08:54] LABS: INR 1.09 (0.85-1.15); PARTIAL THROMBOPLASTIN TIME 45.9 SEC (26.3-35.5); PROTHROMBIN TIME 11.4 SEC (9.6-11.6)
[2019-04-09] MEDS: PATIROMER CALCIUM SORBITEX 8.4 GM PO SCH (09:00)
[2019-04-09] MEDS: HEPARIN 25000 UNITS/250 ML D5W 250 ML IV PRN (09:13)
[2019-04-09 09:35] LABS: LYMPHOCYTES % (MANUAL) 16 % (22-44); MONOCYTES % (MANUAL) 3 % (2-9); SEGMENTED NEUTROPHILS % 81 % (40-70)
[2019-04-09 09:36] LABS: MAN.DIFF COMMENT-IMPRESSION MANUAL DIFFERENTIAL
[2019-04-09 11:30] VITALS: BP 120/77
[2019-04-09 15:00] VITALS: BP 142/80
[2019-04-09 19:41] VITALS: BP 145/78
[2019-04-09] MEDS: PREDNISONE 20 MG TABLET PO SCH (21:03)
[2019-04-09] MEDS: FAMOTIDINE 20MG TAB 20 MG TAB PO SCH (21:03)
[2019-04-09] MEDS: WARFARIN SODIUM 5 MG TAB PO SCH (21:04)
[2019-04-09 23:49] VITALS: BP 132/79
[2019-04-10] MEDS: HEPARIN 25000 UNITS/250 ML D5W 250 ML IV PRN ×2 (01:39→14:46)
[2019-04-10 03:59] VITALS: BP 133/71
[2019-04-10 04:40] LABS: MEAN CORPUSCULAR HEMOGLOBIN 26.3 pg (27.0-33.0); MEAN CORPUSCULAR HGB CONC 33.6 g/dL (32.0-36.0); MEAN CORPUSCULAR VOLUME 78.4 fL (79-99); PLATELET COUNT (AUTO) 97 K/uL (130-400); RED BLOOD CELL COUNT(AUTO) 2.93 MIL/uL (4.50-6.20); RED CELL DISTRIBUTION WIDTH 17.6 % (11.0-15.5); WHITE BLOOD COUNT (AUTO) 3.2 K/uL (4.8-10.8)
[2019-04-10 04:58] LABS: CREATININE 7.7 mg/dL (0.5-1.5); PHOSPHORUS 4.7 mg/dL (2.5-4.9); POTASSIUM 4.1 mmol/L (3.5-5.1)
[2019-04-10] MEDS: FERROUS SULFATE 325 MG TABLET.DR PO SCH (05:50)
[2019-04-10] MEDS: ALBUTEROL SULFATE 0.083% 2.5 MG/3 ML INH IH PRN ×2 (06:23→18:26)
[2019-04-10 07:17] VITALS: BP 134/78
[2019-04-10] MEDS: SODIUM BICARBONATE 650 MG TAB PO SCH ×2 (07:45→20:32)
[2019-04-10] MEDS: CARVEDILOL 25 MG TABLET PO SCH ×2 (07:45→20:32)
[2019-04-10] MEDS: PATIROMER CALCIUM SORBITEX 8.4 GM PO SCH (07:45)
[2019-04-10] MEDS: FOLIC ACID/VITAMIN B COMP W-C 1 MG CAP/TAB PO SCH (07:45)
--- NOTE | 2019-04-10 08:00 | NUR ---
ASSESSMENT PT IS AAOX3 DENIES CP DENIES SOB RESTING IN CHAIR AT THIS TIME. BREATHING PATTERN IS EVEN AND UNLABORED. HEPARIN INFUSING PROTOCOL. VISITOR AT BEDSIDE, CALL LIGHT WITHIN REACH.
[2019-04-10 09:26] LABS: INR 1.22 (0.85-1.15); PARTIAL THROMBOPLASTIN TIME 48.9 SEC (26.3-35.5); PROTHROMBIN TIME 12.7 SEC (9.6-11.6)
[2019-04-10 11:05] VITALS: BP 137/76
[2019-04-10 15:10] VITALS: BP 130/69
--- NOTE | 2019-04-10 17:46 | NUR ---
DR DIETZ ROUNDED SAW PATIENT, CONTINUE COUMADIN ORDERED.
[2019-04-10 19:51] VITALS: BP 141/82
[2019-04-10] MEDS: WARFARIN SODIUM 5 MG TAB PO SCH (20:31)
[2019-04-10] MEDS: PREDNISONE 20 MG TABLET PO SCH (20:31)
[2019-04-10] MEDS: FAMOTIDINE 20MG TAB 20 MG TAB PO SCH (20:32)
[2019-04-11] VITALS: BP 130/79
[2019-04-11 04:32] LABS: HEMATOCRIT 23.6 % (42-54); MEAN CORPUSCULAR HEMOGLOBIN 27.5 pg (27.0-33.0); MEAN CORPUSCULAR HGB CONC 34.4 g/dL (32.0-36.0); MEAN CORPUSCULAR VOLUME 79.8 fL (79-99); NUCLEATED RED BLOOD CELLS 0.1 % (0.0-0.19); PLATELET COUNT (AUTO) 96 K/uL (130-400); RED BLOOD CELL COUNT(AUTO) 2.95 MIL/uL (4.50-6.20); RED CELL DISTRIBUTION WIDTH 17.5 % (11.0-15.5); WHITE BLOOD COUNT (AUTO) 4.1 K/uL (4.8-10.8)
[2019-04-11 04:40] VITALS: BP 121/72
[2019-04-11 04:41] LABS: INR 1.45 (0.85-1.15); PARTIAL THROMBOPLASTIN TIME 67.8 SEC (26.3-35.5)
[2019-04-11 05:20] LABS: POTASSIUM 4.5 mmol/L (3.5-5.1)
[2019-04-11 05:45] LABS: CREATININE 8.8 mg/dL (0.5-1.5)
[2019-04-11] MEDS: HEPARIN 25000 UNITS/250 ML D5W 250 ML IV PRN ×2 (06:25→20:10)
[2019-04-11] MEDS: ALBUTEROL SULFATE 0.083% 2.5 MG/3 ML INH IH PRN ×2 (06:27→18:11)
[2019-04-11] MEDS: FERROUS SULFATE 325 MG TABLET.DR PO SCH (07:12)
[2019-04-11 07:46] VITALS: BP 128/78
--- NOTE | 2019-04-11 08:00 | NUR ---
ASSESSMENT PT IS AAOX3 DENIES CP DENIES SOB RESTING IN BED AT THIS TIME. BREATHING PATTERN IS EVEN AND UNLABORED. DR LEE ROUNDED, CONTINUE WITH HEPARIN FOR NOW UNTIL INR WITHIN RANGE FOR DC HOME. CALL LIGHT WITHIN REACH.
[2019-04-11] MEDS: SODIUM BICARBONATE 650 MG TAB PO SCH ×2 (08:01→19:53)
[2019-04-11] MEDS: PATIROMER CALCIUM SORBITEX 8.4 GM PO SCH (08:01)
[2019-04-11] MEDS: FOLIC ACID/VITAMIN B COMP W-C 1 MG CAP/TAB PO SCH (08:01)
[2019-04-11] MEDS: CARVEDILOL 25 MG TABLET PO SCH ×2 (08:02→19:53)
[2019-04-11 09:22] LABS: INR 1.54 (0.85-1.15); PARTIAL THROMBOPLASTIN TIME 63.2 SEC (26.3-35.5); PROTHROMBIN TIME 15.9 SEC (9.6-11.6)
[2019-04-11 11:42] VITALS: BP 138/85
--- NOTE | 2019-04-11 12:00 | NUR ---
DIALYSIS AT BEDSIDE DIALYSIS NURSE AT BEDSIDE
[2019-04-11 14:45] VITALS: BP 143/83
--- NOTE | 2019-04-11 14:49 | NUR ---
HEPARIN VIALS X2 GIVEN TO [facility] DIALYSIS NURSE
--- NOTE | 2019-04-11 15:17 | NUR ---
DC PLAN PATIENT ACCEPTED TO [facility] 630PM LET KNOW INR IMPROVED 1.56 LET [facility] KNOW THAT PATIENT NOT DISCHARGING TODAY DUE TO INR. WILL CALL ONCE DC ORDER IN PLACE. Addendum: 04/11/19 at 1519 by ENRIKE MAURICIO RN CM Amended: Links added.
--- NOTE | 2019-04-11 17:00 | NUR ---
STATUS SITTING UP AT BEDSIDE, NO COMPLAINTS. VISITOR AT BEDSIDE.
[2019-04-11] MEDS: PREDNISONE 20 MG TABLET PO SCH (19:52)
[2019-04-11] MEDS: FAMOTIDINE 20MG TAB 20 MG TAB PO SCH (19:52)
[2019-04-11 20:17] VITALS: BP 144/79
[2019-04-11] MEDS ORDERED: WARFARIN SODIUM 2 MG TAB PO SCH (21:00)
[2019-04-12] VITALS (7 sets, daily range): BP systolic 127–147; BP diastolic 70–86
[2019-04-12 04:16] LABS: MEAN CORPUSCULAR HEMOGLOBIN 26.5 pg (27.0-33.0); PLATELET COUNT (AUTO) 97 K/uL (130-400); RED BLOOD CELL COUNT(AUTO) 2.95 MIL/uL (4.50-6.20); RED CELL DISTRIBUTION WIDTH 17.7 % (11.0-15.5); WHITE BLOOD COUNT (AUTO) 3.7 K/uL (4.8-10.8)
[2019-04-12 04:35] LABS: CREATININE 6.6 mg/dL (0.5-1.5); POTASSIUM 4.5 mmol/L (3.5-5.1)
[2019-04-12] MEDS: ALBUTEROL SULFATE 0.083% 2.5 MG/3 ML INH IH PRN ×2 (05:16→19:01)
[2019-04-12] MEDS: FERROUS SULFATE 325 MG TABLET.DR PO SCH (06:08)
[2019-04-12 07:33] LABS: INR 1.8 (0.85-1.15); PARTIAL THROMBOPLASTIN TIME 72.5 SEC (26.3-35.5); PROTHROMBIN TIME 18.5 SEC (9.6-11.6)
--- NOTE | 2019-04-12 07:45 | NUR ---
ASSESSMENT ENCOUNTERED PT A&OX3 AMBULATING FROM BATHROOM AND BACK TO BED, GAIT STEADY AND STRONG WITH STAND BY ASSIST, CALM COOPERATIVE AND DOES NOT APPEAR TO BE IN ANY DISTRESS NOR ANY NEURO DEFICITS PRESENT, PT DENIES PAIN, SOB, NAUSEA. PERMACATH TO RSC, SITE DRY AND INTACT, LEFT WRIST SURGICAL INCISION SITE DRY AND INTACT. CALL LIGHT WITHIN REACH, FAMILY AT BEDSIDE. PT ON HEPARIN DRIP PER PROTOCOL.
[2019-04-12] MEDS: PATIROMER CALCIUM SORBITEX 8.4 GM PO SCH (09:00)
[2019-04-12] MEDS: FOLIC ACID/VITAMIN B COMP W-C 1 MG CAP/TAB PO SCH (10:33)
[2019-04-12] MEDS: SODIUM BICARBONATE 650 MG TAB PO SCH ×2 (10:33→20:20)
[2019-04-12] MEDS: CARVEDILOL 25 MG TABLET PO SCH ×2 (10:33→20:20)
[2019-04-12] MEDS ORDERED: WARFARIN SODIUM 7.5 MG TAB PO SCH (16:00)
[2019-04-12] MEDS ORDERED: EPOETIN ALFA 10,000 UNIT/ML VIAL SQ SCH (16:15)
[2019-04-12] MEDS: PREDNISONE 20 MG TABLET PO SCH (20:19)
[2019-04-12] MEDS: FAMOTIDINE 20MG TAB 20 MG TAB PO SCH (20:20)
[2019-04-13 03:32] VITALS: BP 139/78
[2019-04-13 04:08] LABS: BASOPHILS % (AUTO) 0.1 % (0.0-5.0); HEMATOCRIT 22.4 % (42-54); LYMPHOCYTES % (AUTO) 16.9 % (21.0-51.0); MEAN CORPUSCULAR HEMOGLOBIN 26.6 pg (27.0-33.0); MEAN CORPUSCULAR HGB CONC 33.8 g/dL (32.0-36.0); MEAN CORPUSCULAR VOLUME 78.6 fL (79-99); PLATELET COUNT (AUTO) 87 K/uL (130-400); RED BLOOD CELL COUNT(AUTO) 2.85 MIL/uL (4.50-6.20); RED CELL DISTRIBUTION WIDTH 18.3 % (11.0-15.5); WHITE BLOOD COUNT (AUTO) 3.4 K/uL (4.8-10.8)
[2019-04-13] MEDS: HEPARIN 25000 UNITS/250 ML D5W 250 ML IV PRN (04:56)
[2019-04-13] MEDS: FERROUS SULFATE 325 MG TABLET.DR PO SCH (06:38)
[2019-04-13] MEDS: ALBUTEROL SULFATE 0.083% 2.5 MG/3 ML INH IH PRN (06:52)
--- NOTE | 2019-04-13 07:30 | NUR ---
ASSESSMENT ENCOUNTERED PT UP IN CHAIR, A&OX3, CALM COOPERATIVE AND DOES NOT APPEAR TO BE IN ANY DISTRESS NOR ANY NEURO DEFICITS PRESENT, PT DENIES PAIN, SOB, NAUSEA. PERMACATH TO [facility], SITE DRY AND INTACT, LEFT WRIST SURGICAL INCISION SITE DRY AND INTACT. PT IS AMBULATORY, GAIT STEADY AND STRONG WITH STAND BY ASSIST. CALL LIGHT WITHIN REACH, FAMILY AT BEDSIDE.
[2019-04-13 07:48] VITALS: BP 146/93
[2019-04-13 07:49] LABS: INR 2.87 (0.85-1.15); PARTIAL THROMBOPLASTIN TIME 47.3 SEC (26.3-35.5); PROTHROMBIN TIME 28.4 SEC (9.6-11.6)
[2019-04-13] MEDS ORDERED: Folic Acid/Vitamin B Comp W-C PO (10:51)
[2019-04-13] MEDS ORDERED: PRED20TA3 PO (10:51)
[2019-04-13 11:47] VITALS: BP 141/85
--- NOTE | 2019-04-13 14:44 | NUR ---
DC PLAN PATIENT HAD BEEN NOTIFIED OF CHAIR TIME AND WAY TO GET TO DIALYSIS. MEDICAID TRANSPORT PATIENT IS AWARE OF IT AND HOW TO USE IT JUST SAYS THAT IT TAKES A WHILE AND THAT THEY ARE DIFFICULT TO WORK WITH. EXPLAINED TO PATIENT THAT IT IF HE CAN NOT GET MOTHER IN LAW TO HELP WITH TRANSPORT THEN MEDICAID WOULD BE HIS BEST BET. CHARGE NURSE ASKED PATIENT TO WAIT SINCE THEY COULD NOT LOCATE WRITTEN INFO THAT WAS LEFT IN CHART REGARDING RENAL AND MEDICAID. PATIENT AND SAID THEY COULD NOT WAIT BECAUSE RIDE WAS HERE AND LEFT. CALLED [facility] TO LET THEM KNOW THAT PATIENT IS DISCHARGED AND THEY WILL CONTACT HIM TO LET HIM KNOW WHEN HE NEEDS TO ARRIVE IN ORDER TO FINISH PAPERWORK. Addendum: 04/13/19 at 1451 by ENRIKE MAURICIO RN CM Amended: Links added.
== END 2019-04-13 14:30 | disposition home or self-care (01) | DRG 673 ==
LOC: EDH 11:06 → EDHIP 13:23 → 4AH 18:24 → 2DH 23:41 → 2BH 04-03 04:56 → 2DH 04-07 02:22
PROVIDERS: ADMIT Hospitalist; ATTEND Hospitalist
PROC: 30233N1 Transfusion of Nonautologous Red Blood Cells into Peripheral Vein, Percutaneous Approach (ICD-10-PCS; 2019-03-28)
PROC: 0JH63XZ Insertion of Tunneled Vascular Access Device into Chest Subcutaneous Tissue and Fascia, Percutaneous Approach (ICD-10-PCS; 2019-03-31)
PROC: 5A1D70Z Performance of Urinary Filtration, Intermittent, Less than 6 Hours Per Day (ICD-10-PCS; 2019-03-31)
PROC: 02H633Z Insertion of Infusion Device into Right Atrium, Percutaneous Approach (ICD-10-PCS; 2019-03-31)
PROC: B5181ZA Fluoroscopy of Superior Vena Cava using Low Osmolar Contrast, Guidance (ICD-10-PCS; 2019-03-31)
PROC: B548ZZA Ultrasonography of Superior Vena Cava, Guidance (ICD-10-PCS; 2019-03-31)
PROC: 5A1D70Z Performance of Urinary Filtration, Intermittent, Less than 6 Hours Per Day (ICD-10-PCS; 2019-04-01)
PROC: 5A1D70Z Performance of Urinary Filtration, Intermittent, Less than 6 Hours Per Day (ICD-10-PCS; 2019-04-03)
PROC: 5A1D70Z Performance of Urinary Filtration, Intermittent, Less than 6 Hours Per Day (ICD-10-PCS; 2019-04-04)
PROC: 5A1D70Z Performance of Urinary Filtration, Intermittent, Less than 6 Hours Per Day (ICD-10-PCS; 2019-04-06)
PROC: 3E0T3BZ Introduction of Anesthetic Agent into Peripheral Nerves and Plexi, Percutaneous Approach (ICD-10-PCS; 2019-04-07)
PROC: 03160ZD Bypass Left Axillary Artery to Upper Arm Vein, Open Approach (ICD-10-PCS; principal; 2019-04-07 12:00)
PROC: 5A1D70Z Performance of Urinary Filtration, Intermittent, Less than 6 Hours Per Day (ICD-10-PCS; 2019-04-08)
PROC: 5A1D70Z Performance of Urinary Filtration, Intermittent, Less than 6 Hours Per Day (ICD-10-PCS; 2019-04-11)
PROC: 5A1D70Z Performance of Urinary Filtration, Intermittent, Less than 6 Hours Per Day (ICD-10-PCS; 2019-04-13)
DX: N17.9 Acute kidney failure, unspecified (principal); I50.31 Acute diastolic (congestive) heart failure; E44.0 Moderate protein-calorie malnutrition; E87.2 Acidosis; D61.818 Other pancytopenia; I13.2 Hypertensive heart and chronic kidney disease with heart failure and with stage 5 chronic kidney disease, or end stage renal disease; Z91.15 Patient's noncompliance with renal dialysis; E87.5 Hyperkalemia; Z95.2 Presence of prosthetic heart valve; K76.0 Fatty (change of) liver, not elsewhere classified; E11.22 Type 2 diabetes mellitus with diabetic chronic kidney disease; N18.6 End stage renal disease; Z99.2 Dependence on renal dialysis; Z21 Asymptomatic human immunodeficiency virus [HIV] infection status; E66.9 Obesity, unspecified; F31.9 Bipolar disorder, unspecified; Z79.01 Long term (current) use of anticoagulants; Z84.1 Family history of disorders of kidney and ureter; Z87.891 Personal history of nicotine dependence; Z88.8 Allergy status to other drugs, medicaments and biological substances; Z68.33 Body mass index [BMI] 33.0-33.9, adult
CPT/HCPCS: 36415; 36430; 36558; 71045; 76700; 77001; 80048; 80053; 80061; 80074; 80076; 80305; 81001; 82040; 82270; 82550; 82607; 82728; 82746; 83036; 83540; 83550; 83690; 83735; 83880; 83883; 84100; 84132; 84165; 84484; 84550; 85025; 85027; 85060; 85610; 85730; 86038; 86160; 86215; 86235; 86255; 86334; 86360; 86480; 86592; 86701; 86704; 86706; 86777; 86778; 86812; 86850; 86900; 86901; 86922; 87283; 87340; 87390; 87536; 87900; 87901; 90935; 93005; 93306; 94640; 94664; 99291; C1750; G0365; G0378; J0690; J0885; J1644; J1815; J1940; J2250; J2440; J2704; J2795; J2930; J3490; J7030; J7040; J7070; P9016; Q0163

== ENCOUNTER 2019-05-19 16:54 | Emergency (ER) | payer MEDICARE ==
[~2019-05-19 16:54] MED LIST: BUSP10TA3 PO; CARV25TA PO; DIAZ5TAB4 PO; Folic Acid/Vitamin B Comp W-C PO; GABA-531 PO; NITR0.3T11 SL; ONDA4TAB4 PO; WARF5TAB76 PO
[2019-05-19 17:45] LABS: HEMATOCRIT 21.5 % (42-54); MEAN CORPUSCULAR HEMOGLOBIN 26.7 pg (27.0-33.0); MEAN CORPUSCULAR HGB CONC 30.7 g/dL (32.0-36.0); NEUTROPHILS % (AUTO) 52.5 % (40.0-77.0); PLATELET COUNT (AUTO) 75 K/uL (130-400); RED BLOOD CELL COUNT(AUTO) 2.47 MIL/uL (4.50-6.20); RED CELL DISTRIBUTION WIDTH 19.2 % (11.0-15.5); WHITE BLOOD COUNT (AUTO) 2.2 K/uL (4.8-10.8)
[2019-05-19 17:46] LABS: BASOPHILS % (AUTO) 0.9 % (0.0-5.0); MONOCYTES % (AUTO) 9.1 % (3.0-13.0)
[2019-05-19 18:07] LABS: ALBUMIN 2.9 g/dL (3.5-5.0); BILIRUBIN,TOTAL 0.6 mg/dL (0.2-1.0); TOTAL PROTEIN, SERUM 7.8 g/dL (6.0-8.3)
[2019-05-19 18:09] LABS: CREATININE 7.9 mg/dL (0.5-1.5); INR 3.33 (0.85-1.15); PARTIAL THROMBOPLASTIN TIME 49.7 SEC (26.3-35.5); PROTHROMBIN TIME 33.4 SEC (9.6-11.6)
[2019-05-19 18:20] LABS: BAND NEUTROPHILS % (MANUAL) 1 % (0-2); LYMPHOCYTES % (MANUAL) 41 % (22-44); MAN.DIFF COMMENT-IMPRESSION MANUAL DIFFERENTIAL; MONOCYTES % (MANUAL) 8 % (2-9); PLATELET MORPHOLOGY COMMENT DECREASED; REACTIVE LYMPHOCYTES 1 % (0-0); SEGMENTED NEUTROPHILS % 49 % (40-70)
== END 2019-05-19 23:40 | disposition home or self-care (01) ==
LOC: EDH 16:54
DX: D64.9 Anemia, unspecified (principal); N18.6 End stage renal disease; I10 Essential (primary) hypertension; Z98.890 Other specified postprocedural states; Z88.8 Allergy status to other drugs, medicaments and biological substances
CPT/HCPCS: 36415; 80053; 85025; 85610; 85730; 86850; 86900; 86901; 86922; 99284; P9016